=== PATIENT | female | born 1980 | race African-American/Black ===

== ENCOUNTER 2022-02-13 16:55 | Emergency (ER) | payer MEDICARE, OTHER ==
[2022-02-13] MEDS ORDERED: Boostrix 0.5 ML (Tdap) VIAL (>/=7 yrs of age) ONE (18:49)
== END 2022-02-13 19:11 | disposition home or self-care (01) ==
LOC: CSHERS 16:55
DX: T24.202A Burn of second degree of unspecified site of left lower limb, except ankle and foot, initial encounter (principal); X15.8XXA Contact with other hot household appliances, initial encounter
CPT/HCPCS: 16020; 90471; 90715

== ENCOUNTER 2022-10-06 23:17 | Emergency (ER) | payer OTHER ==
[2022-10-06] MEDS ORDERED: Ibuprofen 200 MG TAB ONE (23:53)
== END 2022-10-07 03:25 | disposition home or self-care (01) ==
LOC: CSHERS 23:17
DX: M79.652 Pain in left thigh (principal); R60.0 Localized edema